=== PATIENT | female | born 1940 | race Asian ===

== ENCOUNTER 2021-08-03 11:55 | Emergency (ER) | payer OTHER ==
[2021-08-03 12:01] VITALS: TEMP 97.5; BMI 21.4
[2021-08-03 12:40] LABS: EOS % 6.1 % (0-4.5); HEMATOCRIT 39.7 % (32.4-45.2); HEMOGLOBIN 13.2 GM/dl (10.7-15.3); LYMPH % 20.3 % (8-40); MCHC 33.3 g/dl (32.0-36.0); MEAN CELL VOLUME 90.1 fl (80-96); MEAN PLT VOLUME 8.5 fl (7.5-11.1); MONO % 10.7 % (3.8-10.2); NEUT % 58.9 % (42.8-82.8); PLATELET COUNT 123 10^3/uL (134-434); RDW 12.3 % (11.6-15.6); WHITE BLOOD COUNT 4.4 K/mm3 (4.0-10.8)
[2021-08-03 13:01] LABS: ALBUMIN 3.9 g/dl (3.4-5.0); ALK PHOS 57 U/L (45-117); ANION GAP 9 MMOL/L (8-16); BILIRUBIN,TOTAL 1.1 mg/dl (0.2-1); CALCIUM 8.9 mg/dl (8.5-10); CHLORIDE 103 mmol/L (98-107); CO2 25 mmol/L (21-32); CREATININE 0.5 mg/dl (0.55-1.3); GLUCOSE,RANDOM 106 mg/dl (74-106); SGOT/AST 32 U/L (15-37); SGPT/ALT 28 U/L (13-61); SODIUM 137 mmol/L (136-145); TOT PROT 6.5 g/dl (6.4-8.2)
[2021-08-03 13:18] LABS: EPITHELIAL CELLS MODERATE /hpf
[2021-08-03] MEDS ORDERED: MECLIZINE HCL 12.5 MG TABLET PO ONE (13:18)
[2021-08-03] MEDS ORDERED: SODIUM CHLORIDE 250 ML IV STA (13:18)
[2021-08-03] MEDS ORDERED: MECLIZINE HCL 12.5 MG TABLET ONE (13:23)
[2021-08-03] MEDS ORDERED: ONDANSETRON 4 MG/2 ML VIAL ONE (13:37)
[2021-08-03] MEDS ORDERED: ONDANSETRON 4 MG/2 ML VIAL IVPUSH ONE (13:42)
[2021-08-03] MEDS ORDERED: diphenhydrAMINE HCL 25 MG CAPSULE (FP) PO ONE (13:42)
[2021-08-03 14:42] VITALS: BP 143/77; PULSE 74
== END 2021-08-03 14:42 | disposition home or self-care (01) ==
LOC: FER 11:55
PROC: 3E033GC Introduction of Other Therapeutic Substance into Peripheral Vein, Percutaneous Approach (ICD-10-PCS; principal; 2021-08-03)
PROC: 3E0337Z Introduction of Electrolytic and Water Balance Substance into Peripheral Vein, Percutaneous Approach (ICD-10-PCS; 2021-08-03)
DX: N39.0 Urinary tract infection, site not specified (principal); E86.0 Dehydration
CPT/HCPCS: 36415; 70450-TC; 71045-TC-FY; 80053; 81003; 81015; 82550; 84484; 85025; 87086; 93005; 99285-25

== ENCOUNTER 2024-09-22 14:41 | Emergency (ER) | payer OTHER ==
[2024-09-22 15:02] VITALS: BP 131/76; PULSE 80; RESP 14; TEMP 96.7; BMI 21.4
[2024-09-22 18:41] LABS: HIV INTERPRETATION NEGATIVE (NEGATIVE)
== END 2024-09-22 16:09 | disposition home or self-care (01) ==
LOC: FER 14:41
DX: R22.1 Localized swelling, mass and lump, neck (principal)
CPT/HCPCS: 36415; 86803; 87389; 99283-25